=== PATIENT | female | born 1995 | race Caucasian/White ===

== ENCOUNTER → 2021-10-03 | Outpatient (CLI) | payer BC ==
[~2021-10-03] MED LIST: ISOVUE-370 76% 100ML VIAL As Ordered ONE
== END ==
LOC: M RAD 07:45
PROVIDERS: ATTEND Ophthalmology
DX: H05.243 Constant exophthalmos, bilateral (principal)

== ENCOUNTER 2021-12-19 07:53 | Outpatient (CLI) | payer BC ==
[~2021-12-19] VITALS: Ht 160 cm; Wt 60.0 kg
[2021-12-19 08:07] VITALS: BP 133/83
[2021-12-19] MEDS ORDERED: METH10TA PO (08:33)
[2021-12-19] MEDS ORDERED: METO37.5 PO (08:33)
[2021-12-19] MEDS ORDERED: TEPR500V IV (08:33)
[2021-12-19] MEDS ORDERED: NS IV ONE (08:45)
[2021-12-19] MEDS ORDERED: TEPROTUMUMAB TRBW IV ONE (08:45)
[2021-12-19 10:40] VITALS: BP 128/81
== END 2021-12-19 10:40 | disposition home or self-care (01) ==
LOC: M INFU 07:53
PROVIDERS: ATTEND Ophthalmology
DX: E05.00 Thyrotoxicosis with diffuse goiter without thyrotoxic crisis or storm (principal)
CPT/HCPCS: 96365; J3241